=== PATIENT | male | born 1950 | race Caucasian/White ===

== ENCOUNTER → 2016-12-18 | Day surgery (SDC) | payer MEDICARE ==
[~2016-12-18] MED LIST: ALLO300T PO; AMLO5TAB2 PO; ASPI325T4 PO; FENTANYL PF 100 MCG/2 ML VIAL. IV PRN; FINA5TAB4 PO; GEMF600T3 PO; HYDROMORPHONE 2 MG/ML VIAL. IV PRN; IV RINGERS,LACTATED 1000ML 1,000 ML IV SCH; LIDOCAINE 1% 1 ML SYRINGE. ID PRN; LIDOCAINE 2% PF Vial for OR 5 ML VIAL. ONE; MORPHINE SULFATE 2 MG/ML DISP.SYRIN. IV PRN; OMEP40CA5 PO; ONDANSETRON PF 4 MG/2 ML VIAL. IV PRN; PROCHLORPERAZINE 10 MG/2 ML VIAL. IV PRN; PROPOFOL 40 ML IV ONE; TAMS0.4C2 PO; VITA1TAB31 PO
[2016-12-18 10:50] VITALS: BP 144/83
--- NOTE | 2016-12-21 15:10 | PATHOLOGY ---
PATHOLOGY REPORT * * * * * * * * FINAL DIAGNOSIS: Esophageal biopsies, mid esophagus: - Segments of hyperplastic squamous esophageal mucosa consistent with reflux esophagitis. COMMENT: Sections of the middle esophageal biopsy reveal segments of focally tangentially oriented, hyperplastic squamous esophageal mucosa. The findings are consistent with reflux esophagitis. There is no evidence of an eosinophilic esophagitis. There is no evidence of Feliciano's change, dysplasia or malignancy. (JPM:csd; d/t: 12/21/2016) REPORT ELECTRONICALLY SIGNED BY: Tru Flood M.D. DATE/TIME: 12/21/2016 15:09 * * * * * * * * GROSS PATHOLOGY: Received in formalin labeled "Vikas Kauffman, mid esophagus," are three segments of downing soft tissue measuring 1.0 x 0.9 x 0.1 cm in aggregate dimensions and ranging from 0.3 to 0.7 cm in maximum dimension. The specimen is submitted entirely in cassette A1. (CAA; 12/18/2016) INITIAL CPT CODE(S): A; 97953 Professional services performed [place] [facility] [place] [address] Technical services performed by [facility] at [address] [place] [address] [address]. SPECIMEN(S) RECEIVED: A.Mid esophagus biopsy, r/o eosinophilic esophagitis CLINICAL HISTORY: Difficulty swallowing, R/O eosinophilic esophagitis PATIENT: VIKAS KAUFFMAN /AGE: 1007/10/1950 (Age: 66) PATIENT #: [id number] ALT CASE #: SPECIMEN COLLECTION DATE: 12/18/2016 SPECIMEN RECEIVED DATE: 12/18/2016 [facility] - [address] [place] [address] - PHONE: [phone] * * * END OF REPORT * * *
== END | disposition home or self-care (01) ==
LOC: ENDOS 08:43
PROVIDERS: ATTEND Internal Medicine Gastroenterology
DX: Z12.11 Encounter for screening for malignant neoplasm of colon (principal); K64.0 First degree hemorrhoids; K57.30 Diverticulosis of large intestine without perforation or abscess without bleeding; K22.2 Esophageal obstruction; K20.9 Esophagitis, unspecified; E78.00 Pure hypercholesterolemia, unspecified; I10 Essential (primary) hypertension
CPT/HCPCS: 43239; 43450; 88305; G0121; G0500; J2704

== ENCOUNTER → 2018-03-28 | Outpatient (CLI) | payer MEDICARE | END | disposition home or self-care (01) | LOC: KCIC MRI 15:07 | DX: S73.102A Unspecified sprain of left hip, initial encounter (principal); M47.896 Other spondylosis, lumbar region; K40.90 Unilateral inguinal hernia, without obstruction or gangrene, not specified as recurrent; M51.36 Other intervertebral disc degeneration, lumbar region; M48.07 Spinal stenosis, lumbosacral region; M48.061 Spinal stenosis, lumbar region without neurogenic claudication; I10 Essential (primary) hypertension; E78.00 Pure hypercholesterolemia, unspecified; X58.XXXA Exposure to other specified factors, initial encounter; Y93.89 Activity, other specified; Y92.89 Other specified places as the place of occurrence of the external cause; Y99.8 Other external cause status | CPT/HCPCS: 72148; 73721 ==

== ENCOUNTER → 2019-01-04 | Outpatient (CLI) | payer MEDICARE ==
[2016-12-18 10:50] VITALS: BP 144/83
[~2019-01-04] MED LIST changes: +ACET500T68 PO; +AMLO5TAB10 PO; -AMLO5TAB2 PO; -ASPI325T4 PO; +ASPI325T8 PO; +ASPI81TA50 PO; +DOCU-109 PO; -FENTANYL PF 100 MCG/2 ML VIAL. IV PRN; -GEMF600T3 PO; +GEMF600T8 PO; +HYDR-3164 PO; -HYDROMORPHONE 2 MG/ML VIAL. IV PRN; +IBUP-1027 PO; -IV RINGERS,LACTATED 1000ML 1,000 ML IV SCH; -LIDOCAINE 1% 1 ML SYRINGE. ID PRN; -LIDOCAINE 2% PF Vial for OR 5 ML VIAL. ONE; +METH-38 PO; +METO25TA2 PO; -MORPHINE SULFATE 2 MG/ML DISP.SYRIN. IV PRN; +MULT1TAB52 PO; -ONDANSETRON PF 4 MG/2 ML VIAL. IV PRN; -PROCHLORPERAZINE 10 MG/2 ML VIAL. IV PRN; -PROPOFOL 40 ML IV ONE
[2019-01-04 13:41] LABS: BASO % 0 % (0-3); EOS # 0.2 x10^3/uL (0.0-0.7); EOS % 2 % (0-3); HEMATOCRIT 39.9 % (39.0-53.0); HEMOGLOBIN 13.7 g/dL (13.0-17.5); LYMPH # 1.2 x10^3/uL (1.0-4.8); LYMPH % 19 % (24-48); MEAN CORPUSCULAR HEMOGLOBIN 35 pg (25-35); MEAN CORPUSCULAR HGB CONC 34 g/dL (31-37); MEAN CORPUSCULAR VOLUME 103 fL (79-100); MONO # 0.6 x10^3/uL (0.0-1.1); MONO % 10 % (0-9); NEUT # 4.6 x10^3uL (1.8-7.7); NEUT % 69 % (31-73); PLATELET COUNT 176 x10^3/uL (140-400); RED BLOOD COUNT 3.87 x10^6/uL (4.30-5.70); RED CELL DISTRIBUTION WIDTH 12.7 % (11.5-14.5); WHITE BLOOD COUNT 6.6 x10^3/uL (4.0-11.0)
[2019-01-04 14:14] LABS: ALBUMIN 3.3 g/dL (3.4-5.0); ALBUMIN/GLOBULIN RATIO 0.8 (1.0-1.7); CALCIUM 9.6 mg/dL (8.5-10.1); GFR 74.1; POTASSIUM 4.4 mmol/L (3.5-5.1); TOTAL BILIRUBIN 0.5 mg/dL (0.2-1.0); TOTAL PROTEIN 7.6 g/dL (6.4-8.2)
== END | disposition home or self-care (01) ==
LOC: SURGPAT 12:03
PROVIDERS: ATTEND Neurological Surgery
DX: Z01.818 Encounter for other preprocedural examination (principal); M48.062 Spinal stenosis, lumbar region with neurogenic claudication; M54.16 Radiculopathy, lumbar region
CPT/HCPCS: 36415; 80053; 85025; 87641

== ENCOUNTER 2019-01-16 06:42 | Day surgery (SDC) | payer MEDICARE ==
--- NOTE | 2019-01-12 13:16 | PREOP HP ---
DATE OF SERVICE: 01/16/2019. DATE OF SURGERY: 01/16/2019. HISTORY OF PRESENT ILLNESS: The patient is a pleasant 68-year-old with some difficulty with low back pain and the pain which radiates into his left hip and leg. The problem started in 2014 spontaneously. He had previous surgery in 2012, did well after that operation. He rates his pain as a 4/10 currently. Mornings and walking increase the pain. Sitting helps him. I saw him last in 2014 with similar complaints and had him undergo epidural steroid injections, which he said were not helpful. In 2012, he underwent lumbar microsurgery by another surgeon and did well. He says when the leg is painful, he can give out. He has not fallen. PAST MEDICAL HISTORY: Hypertension, gout, heart trouble. PAST SURGICAL HISTORY: Skin cancer in 2011, tonsillectomy in 5, hemorrhoidectomy in 1966, lumbar surgery with Dr. Cheung in 2012. FAMILY HISTORY: Cancer, diabetes, cardiac disease, hypertension and [place] at an early age. SOCIAL HISTORY: He is a former smoker. . 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 He drinks 7 alcoholic drinks daily. He drinks no caffeinated beverages. He has no history of drug use. He does not currently have exercise regimen. ALLERGIES: No known drug allergies. CURRENT MEDICATIONS: Omeprazole, tamsulosin, allopurinol, finasteride, metoprolol, aspirin, multivitamin. REVIEW OF SYSTEMS: A 12-point review of systems was obtained and is noncontributory except that mentioned above. PHYSICAL EXAMINATION: NEUROSURGERY EXAMINATION: GENERAL APPEARANCE: Alert, pleasant, no acute distress. HEAD: Normocephalic and atraumatic. SKIN: Warm and dry. MUSCULOSKELETAL: Lumbar paraspinal muscle bulk is normal, restricted range of motion of lumbar spine, [id number] tenderness of lower lumbar spine with palpation, normal range of motion of the lower extremities bilaterally. EXTREMITIES: No clubbing, cyanosis or edema. NEUROLOGIC: Alert, oriented x 3, normal recent and remote memory, strength 5/5 in bilateral lower extremities except for left foot dorsiflexion, which was 4+/5. Sensory was intact to light touch in bilateral lower extremities except for decrease in the dorsum of the left foot. Reflexes were present and symmetric in the lower extremities bilaterally. Negative straight leg raising bilaterally, normal gait. IMAGING: I reviewed a lumbar MRI scan. On that study, there are postoperative changes at L3-L4. There is moderately severe left greater than right canal stenosis at L4-L5. ASSESSMENT/ PLAN: I believe the problems at L4-5 are responsible for his lumbar radicular symptoms. I am recommending a left direct laminectomy at this level. I spoke with him about the surgery and the risks as well as postoperative course. He understands. He would like to go ahead. We will make the arrangements. MICHAEL DANIELS MD DR: BELEN/giuseppe JOB#: [id number] / [id number] JAMAL
[~2019-01-16] VITALS: Ht 172.7 cm; Wt 84.4 kg
[~2019-01-16 06:42] MED LIST changes: +BUPIVAC MPF-EPI 0.5%-1:200000 30 ML VIAL. ONE; -DOCU-109 PO; +GELATIN SPONGE SIZE 100. ONE; -HYDR-3164 PO; +KETOROLAC 60 MG/2 ML INJ FOR OR. ONE; -METH-38 PO; +THROMBIN TOPICAL 20,000 UNIT SPRAY.SYRN KIT TP ONE
[2019-01-16] MEDS ORDERED: ONDANSETRON PF 4 MG/2 ML VIAL. IV PRN (07:00)
[2019-01-16] MEDS ORDERED: PROCHLORPERAZINE 10 MG/2 ML VIAL. IV PRN (07:00)
[2019-01-16] MEDS ORDERED: MORPHINE SULFATE 2 MG/ML VIAL. IV PRN (07:00)
[2019-01-16] MEDS ORDERED: HYDROmorphone 2 MG/ML VIAL IV PRN (07:00)
[2019-01-16] MEDS ORDERED: fentaNYL PF VIAL 100 MCG/2 ML VIAL IV PRN ×2 (07:00)
[2019-01-16] MEDS ORDERED: IV RINGERS,LACTATED 1000ML 1,000 ML IV SCH (07:00)
[2019-01-16] MEDS ORDERED: LIDOCAINE 1% PF 2 ML VIAL. ID PRN (07:00)
[2019-01-16] MEDS ORDERED: ceFAZolin 2GM PREMIX 2 GM/50 ML BAG IV ONE (08:00)
[2019-01-16] MEDS ORDERED: PROPOFOL 20 ML IV ONE ×2 (08:24→10:49)
[2019-01-16] MEDS ORDERED: ROCURONIUM 50 MG/5 ML VIAL. ONE (08:24)
[2019-01-16] MEDS ORDERED: ONDANSETRON PF 4 MG/2 ML VIAL. ONE (08:24)
[2019-01-16] MEDS ORDERED: PROPOFOL 50 ML IV ONE (08:24)
[2019-01-16] MEDS ORDERED: GLYCOPYRROLATE 1 MG/5 ML VIAL. ONE (08:24)
[2019-01-16] MEDS ORDERED: DESFLURANE > 120 MINUTES IH ONE (08:24)
[2019-01-16] MEDS ORDERED: REMIFENTANIL 2 MG VIAL. IV ONE ×2 (08:24→09:45)
[2019-01-16] MEDS ORDERED: PHENYLEPHRINE 10 MG/ML VIAL. ONE (08:24)
[2019-01-16] MEDS ORDERED: MIDAZOLAM HCL/PF 2 MG/2 ML VIAL. ONE (08:24)
[2019-01-16] MEDS ORDERED: DEXAMETHASONE SOD PHOS 20 MG/5 ML VIAL. ONE ×2 (08:25→09:10)
[2019-01-16] MEDS ORDERED: KETOROLAC 30 MG/ML INJ FOR OR. INJ ONE (09:10)
[2019-01-16] MEDS ORDERED: NEOSTIGMINE METHYLSULFATE 5 MG/5 ML SYRINGE. ONE (09:13)
[2019-01-16] MEDS: BACITRACIN 50,000 UNIT in IV NORMAL SALINE 1000ML BAG 1,000 ML IRR ONE ×2 (09:30→09:34)
[2019-01-16] MEDS ORDERED: 0.9 % SODIUM CHLORIDE 20 ML VIAL. IJ ONE (09:45)
[2019-01-16] MEDS ORDERED: REMIFENTANIL 1 MG VIAL. IV ONE (09:53)
[2019-01-16] MEDS ORDERED: METOPROLOL TARTRATE 5 MG/5 ML VIAL. IVP ONE (10:00)
[2019-01-16] MEDS ORDERED: hydrALAZINE 20 MG/ML VIAL. ONE (10:15)
[2019-01-16] MEDS ORDERED: HYDR-3164 PO (11:50)
[2019-01-16] MEDS ORDERED: DOCU-109 PO (11:50)
[2019-01-16] MEDS ORDERED: METH-38 PO (11:50)
--- NOTE | 2019-01-16 11:52 | DISCH ---
DISCHARGE INSTRUCTIONS Condition on Discharge Condition on Discharge: Stable Activity After Discharge Activity Instructions for Disc: Activity as tolerated, Avoid exertion Other activity instructions: no driving for 1 week Bathing Instructions: Shower-keep dressing dry Lifting Instructions after Dis: No heavy lifting, No pulling or pushing, Do not lift >10 pounds Diet after Discharge Additional Diet Restrictions: resume home diet Wound Incision Care Wound/Incision Care: Ice to area for comfort Other wound/incision instructi: May remove dressing in 48 hours if dry then may shower, no soaking Contacting the after DC Call your doctor for: Concerns you may have Follow-Up Follow up with: Dr. Daniels's nurse in 2 weeks [phone] MICHAEL DANIELS MD January 16, 2019 11:52
[2019-01-16] MEDS ORDERED: ACETAMINOPHEN 500 MG TABLET PO ONE (12:45)
[2019-01-16 14:00] VITALS: BP 147/73
--- NOTE | 2019-01-16 14:16 | OP ---
DATE OF SURGERY: 01/16/2019 PREOPERATIVE DIAGNOSIS: Lumbar spinal stenosis L4-L5 with left lumbar radiculopathy. POSTOPERATIVE DIAGNOSIS: Lumbar spinal stenosis L4-L5 with left lumbar radiculopathy. OPERATION PERFORMED: Left direct laminectomy L4-L5 with decompression of dura and nerve root. SURGEON: Rodrick Daniels M.D. EDUCATIONAL ADMINISTRATION TEACHER: STU Schneider assisted with the exposure, the microdecompression as well as the closure. FINDINGS: There was considerable scar at this level even though the previous surgery had been done at L3-L4. There is also considerable degenerative arthritis with some significant lateral narrowing. The surgery was done with EMG monitoring, SSEP monitoring, fluoroscopy and microscopic dissection. OPERATIVE INDICATIONS: The patient is a pleasant 68-year-old who a number of years ago underwent a decompression at L3-L4 and did well. He has then developed recurrent pain in his back and left leg pain, which is a neurogenic claudication type pattern and the pattern is left leg is more of an L5 pattern. On imaging studies, he has stenosis at L4-L5 from significant lateral encroachment and I recommended a laminectomy with full decompression on the left, which was the symptomatic side. I spoke with him about the surgery, the risks, technique and expected postoperative course and he understood. DESCRIPTION OF PROCEDURE: Following general endotracheal anesthesia, the patient was positioned prone on the David frame. Lumbar region was prepped and draped in standard fashion. SMOOTH hose and AV impulse boots were applied for DVT prophylaxis. A microscope was draped. Fluoroscopy was draped and brought into field. Monitoring was established. Ancef 2 grams was given less than 1 hour prior to the initiation of surgery. Using fluoroscopic guidance, a midline incision was made opening the inferior part of his previous incision. I dissected down through skin and subcutaneous tissue, I reflected the paraspinal muscles, placed a [place] micro disc retractor and brought in the microscope and the remainder of the surgery was done with the microscope using microscopic technique. I burred down a generous hemilaminotomy. There was considerable degenerative arthritis and spurring and I tried to push it somewhat laterally and I worked with curettes and stripped off the medial portion of the lamina to allow more medial exposure. I drilled down to expose the dura and the exiting L5 root. I worked superiorly and overcut the thickened ligamentum flavum. I freed this up and then peeled the ligament down from superior to inferior and then trimmed it away. I then tilted the patient further away from me and drilled farther and farther medially to allow me to get across the midline and remove the considerably thickened ligament toward the midline, which markedly decompressed the entire region along with the dura to move back significantly. I did visualize very well the L4 root as well with this decompression and the disc space. There was a band across the L5 root, which I lifted and cut which allowed the nerve to be much freer. The disc was flat and no discectomy was warranted. I irrigated copiously with antibiotic solution. I used bone wax for any bone bleeding and at the end of the operation, there was no significant hemorrhage. I irrigated copiously. I closed the wound in layers with absorbable suture. The skin was closed with 4-0 subcuticular stitch. I felt the surgery went very well. RODRICK DANIELS MD DR: BELEN/giuseppe JOB#: [id number] / [id number] JAMAL
--- NOTE | 2019-01-17 16:06 | PATHOLOGY ---
[facility] Accession Number: [id number] . 01 Material submitted: . vertebral column - LUMBAR DECOMPRESSION . 01 Clinical history: . Lumbar stenosis with neurogenic claudication, radiculopathy . 02 Diagnosis: Segments of fibrocartilaginous and fibroadipose tissue and bone, lumbar decompression: - Degenerative changes of fibrocartilaginous tissue. (JPM:pankaj; 01/17/2019) QMS/01/17/2019 . 02 Comment: There is no evidence of an acute inflammatory process or malignancy. . 02 Electronically signed: . Tru Flood MD, Pathologist NPI- [id number] . 01 Gross description: . The specimen is received in formalin, labeled "Cosme Kauffman, lumbar decompression". Received are multiple segments of pink-downing rubbery tissue admixed with small fragments of bone measuring 4.2 x 3.8 x 0.7 cm in aggregate dimensions. The specimen is submitted representatively in cassette A1, following decalcification. (CAA; 01/16/2019) QAC/QAC . 02 Pathologist provided ICD-10: M48.061, G95.19, M54.16 . 02 CPT . 998007, 888430 Specimen Comment: A courtesy copy of this report has been sent to Specimen Comment: [phone], . Specimen Comment: Report sent to / DR EATON Performed at: 01 [facility] [address], [place] [id number] MD Luther Neal MD Phone: [phone] Performed at: 02 [facility] [address] [place], [place] [id number] MD Tru Flood MD Phone: [phone]
== END 2019-01-16 14:10 | disposition home or self-care (01) ==
LOC: SURG 06:42
PROVIDERS: ATTEND Neurological Surgery
DX: M48.061 Spinal stenosis, lumbar region without neurogenic claudication (principal); M54.16 Radiculopathy, lumbar region; I10 Essential (primary) hypertension; M10.9 Gout, unspecified; Z98.890 Other specified postprocedural states; Z83.3 Family history of diabetes mellitus; Z82.49 Family history of ischemic heart disease and other diseases of the circulatory system; Z87.891 Personal history of nicotine dependence; Z72.89 Other problems related to lifestyle; Z79.82 Long term (current) use of aspirin; Z79.899 Other long term (current) drug therapy
CPT/HCPCS: 63047; 63048; 76000; 88304; 88311; 97116; 97162; 97530; A7015; G8978; G8979; G8980; J0360; J0696; J1100; J1885; J2250; J2405; J2704; J2710; J3490; J7030; J7120

== ENCOUNTER → 2021-02-04 | Outpatient (CLI) | payer MEDICARE ==
[~2021-02-04] MED LIST changes: +AMLO-186 PO; -AMLO5TAB10 PO; -BUPIVAC MPF-EPI 0.5%-1:200000 30 ML VIAL. ONE; +DOCU-109 PO; -GELATIN SPONGE SIZE 100. ONE; +GEMF600T20 PO; -GEMF600T8 PO; +HYDR-3164 PO; -KETOROLAC 60 MG/2 ML INJ FOR OR. ONE; +METH-38 PO; +MULT-445 PO; -MULT1TAB52 PO; +OMEP40CA45 PO; -OMEP40CA5 PO; -THROMBIN TOPICAL 20,000 UNIT SPRAY.SYRN KIT TP ONE
--- NOTE | 2021-02-04 15:25 | KCIC ---
MRI of the lumbar spine without contrast 02/04/2021 CLINICAL HISTORY: Low back pain for the last 4-5 months which radiates down the left hip and thigh. H istory of previous lumbar spine surgery. TECHNIQUE: Unenhanced T1-weighted and T2-weighted sagittal and axial and inversion recovery sagittal images of the lumbar spine were obtained. FINDINGS: Comparison study is dated 03/28/2018. Mild to moderate S-shaped curvature of the thoracolumbar spine is seen. Degenerative signal changes a nd loss of height are seen involving all of the disks of the lumbar spine. Degenerative signal change s are seen within the marrow surrounding these discs. The conus medullaris is normal morphology, posi tion, and signal characteristics. A 3.5 cm high signal intensity lesion is seen involving the superio r pole of the left kidney on the T2-weighted images. This likely represents a cyst. No further imagin g evaluation is recommended. At the L1-2 disc space there is a mild to moderate generalized disc bulge. Degenerative changes are s een involving the facet joints bilaterally. There are small facet joint effusions bilaterally. There is moderate ligamentum flavum hypertrophy bilaterally. These findings when combined result in mild to moderate central spinal canal stenosis. Mild to moderate right greater than left neural foraminal st enosis is seen. At the L2-3 disc space there is a mild to moderate generalized disc bulge. This is eccentric to the l eft. Degenerative changes are seen involving the facet joints bilaterally. There are small facet join t effusions bilaterally. There is moderate ligamentum flavum hypertrophy bilaterally. These findings when combined with prominence of the posterior epidural fat result in mild to moderate central spinal canal stenosis. Mild left neural foraminal stenosis is seen. The right neural foramen is patent. At the L3-4 disc space there is a mild to moderate generalized disc bulge. The patient appears to be post left hemilaminotomy. Degenerative changes are seen involving the facet joints bilaterally. There is moderate right ligamentum flavum hypertrophy. There are small facet joint effusions bilaterally. These findings result in mild to moderate right greater than left central spinal canal stenosis. Mild to moderate bilateral neural foraminal stenosis is seen. At the L4-5 disc space the patient is post left hemilaminectomy. There is a mild to moderate generali zed disc bulge. Degenerative changes are seen involving the facet joints bilaterally. There is modera te right ligamentum flavum hypertrophy. These findings do not result in significant central spinal ca nal stenosis. Mild bilateral neural foraminal stenosis is seen. At the L5-S1 disc space there is a mild to moderate generalized disc bulge. Degenerative changes are seen involving the facet joints bilaterally. There is moderate ligamentum flavum hypertrophy bilatera lly. These findings when combined result in mild central spinal canal stenosis. Moderate right neural foraminal stenosis is seen. The left neural foramen is patent. Since the previous examination, the patient is post left hemilaminectomy at L4-5. The moderate to sev ere central spinal canal stenosis at that level seen on the previous examination has resolved. IMPRESSION: 1. . Post left hemilaminotomy at L3-4 and post left hemilaminectomy at L4-5. 2. . The changes of degenerative disc disease are seen throughout the lumbar spine. These findings re sult in mild to moderate central spinal canal stenosis at L1-2 and L2-3, mild to moderate right great er than left central spinal canal stenosis at L3-4 and mild central spinal canal stenosis at L5-S1. M ild to moderate right greater than left neural foraminal stenosis is seen at L1-2. Mild left neural f oraminal stenosis is seen at L2-3. Mild to moderate bilateral neural foraminal stenosis is seen at L3 -4. Mild bilateral neural foraminal stenosis is seen at L4-5. Moderate right neural foraminal stenosi s is seen at L5-S1. Electronically signed by: Guilherme Leonard MD (02/04/2021 3:22 PM) [id number]
== END ==
LOC: KCIC MRI 12:46
PROVIDERS: ATTEND Family Medicine
DX: M47.817 Spondylosis without myelopathy or radiculopathy, lumbosacral region (principal); M51.36 Other intervertebral disc degeneration, lumbar region; M48.061 Spinal stenosis, lumbar region without neurogenic claudication
CPT/HCPCS: 72148